=== PATIENT | male | born 1955 | race Caucasian/White ===

== ENCOUNTER 2017-11-23 16:22 | Inpatient (IN) | payer BC ==
[~2017-11-23] VITALS: Ht 193 cm; Wt 79.2 kg
[~2017-11-23 16:22] MED LIST: ALPR0.5T8 PO; BECL10PO MC; BUPR300T54 PO; DAPA5TAB PO; DIGO250T84 PO; DOCU100T PO; ENOX40DI8 SQ; FOLI0.8T PO; HYDR-2132 PO; METO100T14 PO; MULT-1285 PO; PARO40TA72 PO; TRAZ150T79 PO; WARF10TA6 PO
[2017-11-23] MEDS ORDERED: IPRATROPIUM/ALBUTEROL SULFATE 3 ML SOLUTION IH ONE ×3 (16:36→17:28)
[2017-11-23] MEDS ORDERED: METHYLPREDNISOLONE SOD SUCC 125MG/2ML VIAL ONE (16:40)
[2017-11-23 16:43] LABS: BASOPHILS % (AUTO) 0.5 % (0.0-5.0); HEMATOCRIT 35.8 % (42-54); LYMPHOCYTES % (AUTO) 7.7 % (21.0-51.0); MEAN CORPUSCULAR HEMOGLOBIN 20.7 pg (27.0-33.0); MEAN CORPUSCULAR VOLUME 68.8 fL (79-99); MONOCYTES % (AUTO) 10.7 % (3.0-13.0); NEUTROPHILS % (AUTO) 81.1 % (40.0-77.0); PLATELET COUNT (AUTO) 395 K/uL (130-400); WHITE BLOOD COUNT (AUTO) 22.5 K/uL (4.8-10.8)
[2017-11-23 16:52] LABS: CREATININE 1.5 mg/dL (0.5-1.5); POTASSIUM 4.6 mmol/L (3.5-5.1)
[2017-11-23 17:01] LABS: ABG BASE EXCESS -4.3 mmol/L (-2.0-3.0); ABG HCO3 23.3 mmol/L (21.0-28.0); ABG OXYGEN SATURATION 97.6 % (95.0-99.0); ABG PCO2 52 mmHg (35-48)
[2017-11-23 17:05] LABS: BILIRUBIN,TOTAL 0.4 mg/dL (0.2-1.0); CREATINE KINASE MB 2.4 ng/mL (0.5-3.6); TOTAL PROTEIN, SERUM 8.4 g/dL (6.0-8.3)
[2017-11-23] MEDS ORDERED: LEVOFLOXACIN 750 MG/D5W 150 ML 150 ML ONE (17:08)
[2017-11-23 17:20] LABS: B-TYPE NATRIURETIC PEPTIDE 230 pg/mL (0-100)
[2017-11-23] MEDS ORDERED: INSULIN HUMULIN R 100 UNIT/ML 3ML ONE (17:21)
[2017-11-23 18:00] LABS: PARTIAL THROMBOPLASTIN TIME > 120.0 SEC (26.3-35.5); PROTHROMBIN TIME 50.9 SEC (9.6-11.6)
[2017-11-23] MEDS ORDERED: LACTULOSE 20 GM/30 ML UDCUP PO PRN (20:30)
[2017-11-23] MEDS ORDERED: ONDANSETRON HCL 4 MG/2 ML VIAL IVP PRN (20:30)
[2017-11-23] MEDS ORDERED: CLONIDINE HCL 0.1 MG TABLET PO PRN (20:30)
[2017-11-23] MEDS ORDERED: ACETAMINOPHEN 325 MG TAB PO PRN ×2 (20:30)
[2017-11-23] MEDS ORDERED: IPRATROPIUM/ALBUTEROL SULFATE 3 ML SOLUTION IH PRN (20:30)
[2017-11-23] MEDS: IPRATROPIUM/ALBUTEROL SULFATE 3 ML SOLUTION IH SCH (21:17)
[2017-11-23] MEDS ORDERED: NICOTINE 14 MG/ 24 HR PATCH TD ONE (22:00)
[2017-11-24] VITALS (7 sets, daily range): BP systolic 124–157; BP diastolic 73–90
[2017-11-24] MEDS ORDERED: ACETAMINOPHEN 325 MG TAB PO PRN (00:30)
[2017-11-24] MEDS ORDERED: LIDOCAINE HCL-MPF 1% 2ML VIAL IVP PRN (00:30)
[2017-11-24] MEDS ORDERED: GLUCAGON 1MG KIT 1 MG ML IM PRN (00:30)
[2017-11-24] MEDS ORDERED: DEXTROSE 50%-WATER 50 ML DISP.SYRIN IV PRN (00:30)
[2017-11-24] MEDS ORDERED: HYDRALAZINE HCL 20 MG/ML VIAL IV PRN (00:30)
[2017-11-24] MEDS ORDERED: MORPHINE SULFATE 2 MG/ML 1ML SYG IVP PRN (00:30)
[2017-11-24] MEDS ORDERED: POTASSIUM CHLORIDE 20MEQ/100ML 100 ML IV PRN (00:30)
[2017-11-24] MEDS ORDERED: POTASSIUM CHLORIDE 20 MEQ ERTAB PO PRN (00:30)
[2017-11-24] MEDS ORDERED: POTASSIUM CHLORIDE 10% ELIXIR 20 MEQ/15 ML UDCUP PO PRN (00:30)
[2017-11-24] MEDS: METHYLPREDNISOLONE SOD SUCC 40MG/ML 1ML IVP SCH ×4 (00:44→23:37)
[2017-11-24] MEDS ORDERED: MORPHINE SULFATE 4 MG/1ML SYG ONE ×5 (00:48→23:30)
[2017-11-24] MEDS: ALPRAZOLAM 0.25 MG TABLET PO PRN ×3 (02:06→14:23)
[2017-11-24] MEDS: IPRATROPIUM/ALBUTEROL SULFATE 3 ML SOLUTION IH SCH ×4 (03:06→13:33)
[2017-11-24 04:09] LABS: CREATININE 1.3 mg/dL (0.5-1.5); POTASSIUM 4.5 mmol/L (3.5-5.1)
[2017-11-24 04:10] LABS: HEMATOCRIT 32.4 % (42-54); MEAN CORPUSCULAR HGB CONC 30.7 g/dL (32.0-36.0); MEAN CORPUSCULAR VOLUME 68.4 fL (79-99); PLATELET COUNT (AUTO) 375 K/uL (130-400); RED BLOOD CELL COUNT(AUTO) 4.73 MIL/uL (4.50-6.20); RED CELL DISTRIBUTION WIDTH 18.5 % (11.0-15.5); WHITE BLOOD COUNT (AUTO) 18.6 K/uL (4.8-10.8)
[2017-11-24 04:30] LABS: PARTIAL THROMBOPLASTIN TIME > 120.0 SEC (26.3-35.5); PROTHROMBIN TIME 47.9 SEC (9.6-11.6)
[2017-11-24 04:57] LABS: BAND NEUTROPHILS % (MANUAL) 10 % (0-2); LYMPHOCYTES % (MANUAL) 5 % (22-44); MAN.DIFF COMMENT-IMPRESSION MANUAL DIFFERENTIAL; MONOCYTES % (MANUAL) 2 % (2-9); SEGMENTED NEUTROPHILS % 83 % (40-70)
[2017-11-24] MEDS: INSULIN HUMULIN R 100 UNIT/ML 3ML SQ SCH ×4 (06:10→21:27)
[2017-11-24] MEDS ORDERED: ENOXAPARIN SODIUM 40 MG/0.4 ML SYRINGE SQ SCH (09:00)
[2017-11-24] MEDS: FAMOTIDINE 20MG TAB 20 MG TAB PO SCH ×2 (09:06→21:30)
[2017-11-24] MEDS ORDERED: DULO60CA63 PO (13:29)
[2017-11-24] MEDS ORDERED: LOSA50TA37 PO (13:29)
[2017-11-24] MEDS ORDERED: METF850T2 PO (13:29)
[2017-11-24] MEDS ORDERED: TAMS0.4C32 PO (13:29)
[2017-11-24] MEDS ORDERED: GLYB5TAB8 PO (13:29)
[2017-11-24] MEDS ORDERED: DILT240C94 PO (13:29)
[2017-11-24] MEDS ORDERED: PENI500T2 PO (13:29)
[2017-11-24] MEDS ORDERED: DICL75TA5 PO (13:29)
[2017-11-24] MEDS ORDERED: MEROPENEM 1GM IVPB PREMIXED 1 GM IV SCH (14:15)
[2017-11-24] MEDS ORDERED: CALC-1038 PO (16:06)
[2017-11-24] MEDS: MEROPENEM 1 GM VIAL IVP SCH ×2 (16:34→23:37)
[2017-11-24] MEDS: DOXYCYCLINE 100MG+NS 250ML 250 ML IV SCH (16:34)
[2017-11-24] MEDS ORDERED: LEVOFLOXACIN 500 MG/D5W 100 ML 100 ML IV SCH (17:00)
[2017-11-24] MEDS ORDERED: NICO-649 TD (18:13)
[2017-11-24] MEDS ORDERED: HYDROCODONE/ACETAMINOPHEN 5/325 MG TAB PO PRN (19:00)
[2017-11-24] MEDS: NICOTINE 21 MG/ 24 HR PATCH TD SCH (19:01)
[2017-11-24] MEDS: IPRATROPIUM 0.5 MG/2.5 ML INH IH SCH ×2 (19:14→22:08)
[2017-11-24] MEDS: Diclofenac Sodium 75 MG PO SCH (21:00)
[2017-11-24] MEDS ORDERED: PENICILLIN V POTASSIUM 500 MG TABLET PO SCH (21:00)
[2017-11-24] MEDS: METFORMIN HCL 850 MG TABLET PO SCH (21:29)
[2017-11-24] MEDS: LOSARTAN 50 MG TABLET PO SCH (21:29)
[2017-11-24] MEDS: METOPROLOL TARTRATE 50 MG TAB PO SCH (21:29)
[2017-11-24] MEDS: OSELTAMIVIR PHOSPHATE 75 MG CAP PO SCH (21:29)
[2017-11-24] MEDS: TRAZODONE HCL 50 MG TAB PO SCH (21:29)
[2017-11-24] MEDS: TAMSULOSIN HCL 0.4 MG CAP.ER.24H PO SCH (21:29)
[2017-11-24] MEDS: ALPRAZOLAM 0.5 MG TABLET PO PRN (21:40)
[2017-11-24] MEDS: BUDESONIDE 0.5 MG/2 ML INH IH SCH (22:08)
[2017-11-25] MEDS: IPRATROPIUM 0.5 MG/2.5 ML INH IH SCH ×6 (01:37→22:13)
[2017-11-25 03:49] LABS: HEMATOCRIT 32.3 % (42-54); MEAN CORPUSCULAR HEMOGLOBIN 20.8 pg (27.0-33.0); MEAN CORPUSCULAR HGB CONC 30.3 g/dL (32.0-36.0); MEAN CORPUSCULAR VOLUME 68.5 fL (79-99); NUCLEATED RED BLOOD CELLS 0.2 % (0.0-0.19); PLATELET COUNT (AUTO) 387 K/uL (130-400); RED BLOOD CELL COUNT(AUTO) 4.72 MIL/uL (4.50-6.20); RED CELL DISTRIBUTION WIDTH 18.6 % (11.0-15.5); WHITE BLOOD COUNT (AUTO) 24.5 K/uL (4.8-10.8)
[2017-11-25 03:55] LABS: INR 2.26 (0.85-1.15); PROTHROMBIN TIME 23.4 SEC (9.6-11.6)
[2017-11-25 04:02] LABS: ABG BASE EXCESS 1.4 mmol/L (-2.0-3.0); ABG HCO3 27.5 mmol/L (21.0-28.0); ABG OXYGEN SATURATION 95.4 % (95.0-99.0); ABG PCO2 49 mmHg (35-48)
[2017-11-25 04:07] VITALS: BP 114/69
[2017-11-25 04:14] LABS: ALBUMIN 2.5 g/dL (3.5-5.0); BILIRUBIN,TOTAL 0.2 mg/dL (0.2-1.0); MAGNESIUM 2.2 mg/dL (1.80-2.40); PHOSPHORUS 3.1 mg/dL (2.5-4.9); POTASSIUM 4.7 mmol/L (3.5-5.1)
[2017-11-25] MEDS ORDERED: MORPHINE SULFATE 4 MG/1ML SYG ONE ×2 (04:56→12:25)
[2017-11-25] MEDS: DOXYCYCLINE 100MG+NS 250ML 250 ML IV SCH ×2 (05:00→14:55)
[2017-11-25] MEDS: INSULIN HUMULIN R 100 UNIT/ML 3ML SQ SCH ×4 (06:07→21:23)
[2017-11-25] MEDS: BUDESONIDE 0.5 MG/2 ML INH IH SCH ×2 (06:16→19:14)
[2017-11-25 08:00] VITALS: BP 134/84
[2017-11-25] MEDS: MEROPENEM 1 GM VIAL IVP SCH ×3 (08:01→23:07)
[2017-11-25] MEDS: ALPRAZOLAM 0.25 MG TABLET PO PRN ×2 (08:01→15:08)
[2017-11-25] MEDS: OSELTAMIVIR PHOSPHATE 75 MG CAP PO SCH ×2 (08:55→21:14)
[2017-11-25] MEDS: METOPROLOL TARTRATE 50 MG TAB PO SCH ×2 (08:55→21:14)
[2017-11-25] MEDS: BUPROPION HCL 150 MG TABLET.SA PO SCH (08:55)
[2017-11-25] MEDS: METFORMIN HCL 850 MG TABLET PO SCH ×2 (08:55→21:15)
[2017-11-25] MEDS: DULOXETINE HCL 30 MG CAP PO SCH (08:56)
[2017-11-25] MEDS: FOLIC ACID 1 MG TABLET PO SCH (08:56)
[2017-11-25] MEDS: FAMOTIDINE 20MG TAB 20 MG TAB PO SCH ×2 (08:56→21:15)
[2017-11-25] MEDS: CALCIUM CARBONATE 500 MG TABLET PO SCH (08:56)
[2017-11-25] MEDS: METHYLPREDNISOLONE SOD SUCC 40MG/ML 1ML IVP SCH ×2 (08:58→16:39)
[2017-11-25] MEDS: Dapagliflozin Propanediol (Farxiga) 5 MG PO SCH (09:00)
[2017-11-25] MEDS ORDERED: NON-FORMULARY MEDICATION 1 EACH (Nicotine (Nicotine Patch) 1 EACH) TD SCH (09:00)
[2017-11-25] MEDS ORDERED: NICOTINE 14 MG/ 24 HR PATCH TD SCH (09:00)
[2017-11-25] MEDS: Diclofenac Sodium 75 MG PO SCH ×2 (09:00→21:00)
[2017-11-25] MEDS: GLYBURIDE 5 MG TABLET PO SCH (09:02)
[2017-11-25] MEDS: DILTIAZEM HCL 120 MG CAP.SR.24H PO SCH (09:02)
[2017-11-25] MEDS: DIGOXIN 250 MCG TABLET PO SCH (09:03)
[2017-11-25] MEDS: HYDROCODONE/ACETAMINOPHEN 5/325 MG TAB PO PRN (10:27)
[2017-11-25 11:00] VITALS: BP 141/83
[2017-11-25 16:00] VITALS: BP 131/76
[2017-11-25] MEDS: NICOTINE 21 MG/ 24 HR PATCH TD SCH (16:55)
[2017-11-25 19:40] VITALS: BP 122/78
[2017-11-25] MEDS: TRAZODONE HCL 50 MG TAB PO SCH (21:14)
[2017-11-25] MEDS: LOSARTAN 50 MG TABLET PO SCH (21:14)
[2017-11-25] MEDS: TAMSULOSIN HCL 0.4 MG CAP.ER.24H PO SCH (21:14)
[2017-11-26] MEDS: METHYLPREDNISOLONE SOD SUCC 40MG/ML 1ML IVP SCH ×3 (00:38→21:12)
[2017-11-26] MEDS: IPRATROPIUM 0.5 MG/2.5 ML INH IH SCH ×6 (01:42→22:02)
[2017-11-26] MEDS: ALPRAZOLAM 0.5 MG TABLET PO PRN (02:19)
[2017-11-26] MEDS: DOXYCYCLINE 100MG+NS 250ML 250 ML IV SCH ×2 (03:02→17:20)
[2017-11-26 03:55] VITALS: BP 106/68
[2017-11-26] MEDS: BUDESONIDE 0.5 MG/2 ML INH IH SCH ×2 (06:19→17:23)
[2017-11-26] MEDS: INSULIN HUMULIN R 100 UNIT/ML 3ML SQ SCH ×4 (06:22→21:27)
[2017-11-26] MEDS: MEROPENEM 1 GM VIAL IVP SCH ×3 (06:22→23:09)
[2017-11-26] MEDS: MORPHINE SULFATE 4 MG/1ML SYG IV PRN ×3 (08:45→22:16)
[2017-11-26] MEDS: NICOTINE 21 MG/ 24 HR PATCH TD SCH (08:45)
[2017-11-26] MEDS: DIGOXIN 250 MCG TABLET PO SCH (08:46)
[2017-11-26] MEDS: DILTIAZEM HCL 120 MG CAP.SR.24H PO SCH (08:47)
[2017-11-26] MEDS: DULOXETINE HCL 30 MG CAP PO SCH (08:48)
[2017-11-26] MEDS: CALCIUM CARBONATE 500 MG TABLET PO SCH (08:49)
[2017-11-26] MEDS: METFORMIN HCL 850 MG TABLET PO SCH ×2 (08:49→21:13)
[2017-11-26] MEDS: OSELTAMIVIR PHOSPHATE 75 MG CAP PO SCH ×2 (08:49→21:14)
[2017-11-26] MEDS: FAMOTIDINE 20MG TAB 20 MG TAB PO SCH ×2 (08:50→21:13)
[2017-11-26] MEDS: GLYBURIDE 5 MG TABLET PO SCH (08:50)
[2017-11-26] MEDS: FOLIC ACID 1 MG TABLET PO SCH (08:50)
[2017-11-26] MEDS: BUPROPION HCL 150 MG TABLET.SA PO SCH (08:50)
[2017-11-26] MEDS: METOPROLOL TARTRATE 50 MG TAB PO SCH ×2 (08:51→21:13)
[2017-11-26] MEDS: Dapagliflozin Propanediol (Farxiga) 5 MG PO SCH (09:00)
[2017-11-26] MEDS: Diclofenac Sodium 75 MG PO SCH ×2 (09:00→21:00)
[2017-11-26] MEDS: ALPRAZOLAM 0.25 MG TABLET PO PRN (11:15)
[2017-11-26 16:00] VITALS: BP 115/68
[2017-11-26] MEDS ORDERED: WARFARIN SODIUM 10 MG TABLET PO SCH (16:00)
[2017-11-26 20:00] VITALS: BP 147/75
[2017-11-26] MEDS: TAMSULOSIN HCL 0.4 MG CAP.ER.24H PO SCH (21:13)
[2017-11-26] MEDS: TRAZODONE HCL 50 MG TAB PO SCH (21:13)
[2017-11-26] MEDS: LOSARTAN 50 MG TABLET PO SCH (21:13)
[2017-11-27] VITALS: BP 146/70
[2017-11-27] MEDS: IPRATROPIUM 0.5 MG/2.5 ML INH IH SCH ×5 (02:17→18:14)
[2017-11-27] MEDS: ALPRAZOLAM 0.25 MG TABLET PO PRN ×2 (03:52→20:53)
[2017-11-27] MEDS: DOXYCYCLINE 100MG+NS 250ML 250 ML IV SCH ×2 (03:53→15:19)
[2017-11-27 04:00] VITALS: BP 151/86
[2017-11-27] MEDS: MORPHINE SULFATE 4 MG/1ML SYG IV PRN ×2 (04:03→10:47)
[2017-11-27] MEDS: BUDESONIDE 0.5 MG/2 ML INH IH SCH ×2 (06:06→18:14)
[2017-11-27 06:45] LABS: MEAN CORPUSCULAR HEMOGLOBIN 21.1 pg (27.0-33.0); MEAN CORPUSCULAR HGB CONC 30.6 g/dL (32.0-36.0); NUCLEATED RED BLOOD CELLS 0.1 % (0.0-0.19); PLATELET COUNT (AUTO) 384 K/uL (130-400); RED BLOOD CELL COUNT(AUTO) 5.07 MIL/uL (4.50-6.20); RED CELL DISTRIBUTION WIDTH 18.5 % (11.0-15.5); WHITE BLOOD COUNT (AUTO) 19.4 K/uL (4.8-10.8)
[2017-11-27 06:57] LABS: CREATININE 0.9 mg/dL (0.5-1.5); POTASSIUM 5.7 mmol/L (3.5-5.1)
[2017-11-27 07:03] LABS: INR 1.45 (0.85-1.15); PROTHROMBIN TIME 15.1 SEC (9.6-11.6)
[2017-11-27] MEDS: INSULIN HUMULIN R 100 UNIT/ML 3ML SQ SCH ×4 (07:03→20:55)
[2017-11-27] MEDS: MEROPENEM 1 GM VIAL IVP SCH ×3 (07:07→22:46)
[2017-11-27 07:35] LABS: B-TYPE NATRIURETIC PEPTIDE 293 pg/mL (0-100)
[2017-11-27 08:00] VITALS: BP 138/77
[2017-11-27] MEDS: Dapagliflozin Propanediol (Farxiga) 5 MG PO SCH (09:00)
[2017-11-27] MEDS: BUPROPION HCL 150 MG TABLET.SA PO SCH (09:00)
[2017-11-27] MEDS: Diclofenac Sodium 75 MG PO SCH ×2 (09:00→21:00)
[2017-11-27] MEDS: NICOTINE 21 MG/ 24 HR PATCH TD SCH (09:25)
[2017-11-27] MEDS: METOPROLOL TARTRATE 50 MG TAB PO SCH ×2 (09:26→20:52)
[2017-11-27] MEDS: DIGOXIN 250 MCG TABLET PO SCH (09:26)
[2017-11-27] MEDS: FAMOTIDINE 20MG TAB 20 MG TAB PO SCH ×2 (09:26→20:52)
[2017-11-27] MEDS: METHYLPREDNISOLONE SOD SUCC 40MG/ML 1ML IVP SCH ×2 (09:27→20:52)
[2017-11-27] MEDS: DULOXETINE HCL 30 MG CAP PO SCH (09:27)
[2017-11-27] MEDS: OSELTAMIVIR PHOSPHATE 75 MG CAP PO SCH ×2 (09:27→20:52)
[2017-11-27] MEDS: FOLIC ACID 1 MG TABLET PO SCH (09:28)
[2017-11-27] MEDS: DILTIAZEM HCL 120 MG CAP.SR.24H PO SCH (09:28)
[2017-11-27] MEDS: CALCIUM CARBONATE 500 MG TABLET PO SCH (09:28)
[2017-11-27] MEDS: GLYBURIDE 5 MG TABLET PO SCH (09:28)
[2017-11-27] MEDS: METFORMIN HCL 850 MG TABLET PO SCH ×2 (09:29→20:52)
[2017-11-27] MEDS ORDERED: MORPHINE SULFATE 2 MG/ML 1ML SYG IVP PRN (09:30)
[2017-11-27 11:57] VITALS: BP 134/70
[2017-11-27] MEDS: MORPHINE SULFATE 2 MG/ML 1ML SYG IVP PRN ×2 (15:18→20:54)
[2017-11-27 16:00] VITALS: BP 130/82
[2017-11-27] MEDS ORDERED: WARF7.5T6 PO (16:01)
[2017-11-27] MEDS: WARFARIN SODIUM 7.5 MG TAB PO SCH (17:15)
[2017-11-27 19:00] VITALS: BP 110/59
[2017-11-27] MEDS: TAMSULOSIN HCL 0.4 MG CAP.ER.24H PO SCH (20:52)
[2017-11-27] MEDS: TRAZODONE HCL 50 MG TAB PO SCH (20:52)
[2017-11-27] MEDS: LOSARTAN 50 MG TABLET PO SCH (20:52)
[2017-11-28] VITALS: BP 124/60
[2017-11-28] MEDS: IPRATROPIUM/ALBUTEROL SULFATE 3 ML SOLUTION IH SCH ×5 (00:11→23:24)
[2017-11-28 04:00] VITALS: BP 126/74
[2017-11-28] MEDS: DOXYCYCLINE 100MG+NS 250ML 250 ML IV SCH ×2 (04:18→16:09)
[2017-11-28] MEDS: INSULIN HUMULIN R 100 UNIT/ML 3ML SQ SCH ×4 (06:29→21:17)
[2017-11-28] MEDS: MEROPENEM 1 GM VIAL IVP SCH ×3 (06:36→23:16)
[2017-11-28 06:39] LABS: MEAN CORPUSCULAR HEMOGLOBIN 20.7 pg (27.0-33.0); MEAN CORPUSCULAR HGB CONC 30.1 g/dL (32.0-36.0); MEAN CORPUSCULAR VOLUME 68.9 fL (79-99); PLATELET COUNT (AUTO) 354 K/uL (130-400); RED BLOOD CELL COUNT(AUTO) 5.22 MIL/uL (4.50-6.20); WHITE BLOOD COUNT (AUTO) 21.2 K/uL (4.8-10.8)
[2017-11-28 06:42] LABS: POTASSIUM 5.1 mmol/L (3.5-5.1)
[2017-11-28] MEDS: BUDESONIDE 0.5 MG/2 ML INH IH SCH ×2 (06:45→19:19)
[2017-11-28 08:00] VITALS: BP 137/79
[2017-11-28] MEDS: Diclofenac Sodium 75 MG PO SCH ×2 (09:00→21:00)
[2017-11-28] MEDS: Dapagliflozin Propanediol (Farxiga) 5 MG PO SCH (09:00)
[2017-11-28] MEDS: BUPROPION HCL 150 MG TABLET.SA PO SCH (09:54)
[2017-11-28] MEDS: DILTIAZEM HCL 120 MG CAP.SR.24H PO SCH (09:54)
[2017-11-28] MEDS: METOPROLOL TARTRATE 50 MG TAB PO SCH ×2 (09:55→21:09)
[2017-11-28] MEDS: CALCIUM CARBONATE 500 MG TABLET PO SCH (09:55)
[2017-11-28] MEDS: PREDNISONE 20 MG TABLET PO SCH (09:55)
[2017-11-28] MEDS: DIGOXIN 250 MCG TABLET PO SCH (09:56)
[2017-11-28] MEDS: FOLIC ACID 1 MG TABLET PO SCH (09:56)
[2017-11-28] MEDS: OSELTAMIVIR PHOSPHATE 75 MG CAP PO SCH ×2 (09:56→21:10)
[2017-11-28] MEDS: GLYBURIDE 5 MG TABLET PO SCH (09:56)
[2017-11-28] MEDS: METFORMIN HCL 850 MG TABLET PO SCH ×2 (09:57→21:10)
[2017-11-28] MEDS: FAMOTIDINE 20MG TAB 20 MG TAB PO SCH ×2 (09:57→21:10)
[2017-11-28] MEDS: DULOXETINE HCL 30 MG CAP PO SCH (09:57)
[2017-11-28] MEDS: NICOTINE 21 MG/ 24 HR PATCH TD SCH (09:59)
[2017-11-28 11:22] VITALS: BP 137/86
[2017-11-28] MEDS: ALPRAZOLAM 0.25 MG TABLET PO PRN ×2 (11:48→17:57)
[2017-11-28 15:58] VITALS: BP 122/69
[2017-11-28] MEDS: WARFARIN SODIUM 7.5 MG TAB PO SCH (16:09)
[2017-11-28 19:00] VITALS: BP 144/77
[2017-11-28] MEDS: TAMSULOSIN HCL 0.4 MG CAP.ER.24H PO SCH (21:10)
[2017-11-28] MEDS: LOSARTAN 50 MG TABLET PO SCH (21:10)
[2017-11-28] MEDS: TRAZODONE HCL 50 MG TAB PO SCH (21:10)
[2017-11-29] VITALS: BP 131/80
[2017-11-29] MEDS: ALPRAZOLAM 0.25 MG TABLET PO PRN (02:51)
[2017-11-29] MEDS: DOXYCYCLINE 100MG+NS 250ML 250 ML IV SCH (03:04)
[2017-11-29 04:00] VITALS: BP 113/57
[2017-11-29] MEDS: MEROPENEM 1 GM VIAL IVP SCH (06:07)
[2017-11-29] MEDS: HYDROCODONE/ACETAMINOPHEN 5/325 MG TAB PO PRN (06:08)
[2017-11-29 06:17] LABS: HEMATOCRIT 34.9 % (42-54); MEAN CORPUSCULAR HEMOGLOBIN 21.6 pg (27.0-33.0); MEAN CORPUSCULAR HGB CONC 31.7 g/dL (32.0-36.0); NUCLEATED RED BLOOD CELLS 0.1 % (0.0-0.19); PLATELET COUNT (AUTO) 352 K/uL (130-400); RED BLOOD CELL COUNT(AUTO) 5.13 MIL/uL (4.50-6.20); WHITE BLOOD COUNT (AUTO) 20.2 K/uL (4.8-10.8)
[2017-11-29] MEDS: INSULIN HUMULIN R 100 UNIT/ML 3ML SQ SCH ×2 (06:35→11:15)
[2017-11-29] MEDS: IPRATROPIUM/ALBUTEROL SULFATE 3 ML SOLUTION IH SCH ×2 (06:48→11:24)
[2017-11-29 08:00] VITALS: BP 119/76
[2017-11-29] MEDS: Dapagliflozin Propanediol (Farxiga) 5 MG PO SCH (09:00)
[2017-11-29] MEDS: Diclofenac Sodium 75 MG PO SCH (09:00)
[2017-11-29] MEDS ORDERED: PRED20TA3 PO (09:37)
[2017-11-29] MEDS ORDERED: DOXY100T2 PO (09:37)
[2017-11-29] MEDS: METOPROLOL TARTRATE 50 MG TAB PO SCH (09:54)
[2017-11-29] MEDS: CALCIUM CARBONATE 500 MG TABLET PO SCH (09:54)
[2017-11-29] MEDS: DULOXETINE HCL 30 MG CAP PO SCH (09:54)
[2017-11-29] MEDS: GLYBURIDE 5 MG TABLET PO SCH (09:54)
[2017-11-29] MEDS: PREDNISONE 20 MG TABLET PO SCH (09:54)
[2017-11-29] MEDS: FAMOTIDINE 20MG TAB 20 MG TAB PO SCH (09:54)
[2017-11-29] MEDS: OSELTAMIVIR PHOSPHATE 75 MG CAP PO SCH (09:54)
[2017-11-29] MEDS: DIGOXIN 250 MCG TABLET PO SCH (09:54)
[2017-11-29] MEDS: FOLIC ACID 1 MG TABLET PO SCH (09:54)
[2017-11-29] MEDS: METFORMIN HCL 850 MG TABLET PO SCH (09:55)
[2017-11-29] MEDS: DILTIAZEM HCL 120 MG CAP.SR.24H PO SCH (09:55)
[2017-11-29] MEDS: BUPROPION HCL 150 MG TABLET.SA PO SCH (09:55)
[2017-11-29] MEDS: NICOTINE 21 MG/ 24 HR PATCH TD SCH (09:56)
[2017-11-29] MEDS: BUDESONIDE 0.5 MG/2 ML INH IH SCH (10:49)
[2017-11-29 11:00] VITALS: BP 108/61
== END 2017-11-29 11:55 | disposition home or self-care (01) | DRG 193 ==
LOC: EDH 16:22 → EDHIP 18:00 → 3AH 11-24 00:33
PROVIDERS: ADMIT Family Medicine; ATTEND Family Medicine
DX: J18.9 Pneumonia, unspecified organism (principal); J96.21 Acute and chronic respiratory failure with hypoxia; J96.22 Acute and chronic respiratory failure with hypercapnia; J44.1 Chronic obstructive pulmonary disease with (acute) exacerbation; J44.0 Chronic obstructive pulmonary disease with (acute) lower respiratory infection; I48.2 Chronic atrial fibrillation; I48.91 Unspecified atrial fibrillation; E11.9 Type 2 diabetes mellitus without complications; I10 Essential (primary) hypertension; F17.210 Nicotine dependence, cigarettes, uncomplicated; M19.90 Unspecified osteoarthritis, unspecified site; F41.9 Anxiety disorder, unspecified; G89.4 Chronic pain syndrome; R79.1 Abnormal coagulation profile; Z79.01 Long term (current) use of anticoagulants; Z88.8 Allergy status to other drugs, medicaments and biological substances
CPT/HCPCS: 36415; 36600; 71045; 71250; 80048; 80053; 82550; 82553; 82803; 82947; 82948; 83605; 83735; 83880; 84100; 84484; 85025; 85027; 85610; 85730; 87040; 87804; 93005; 94640; 94664; 94760; 97039; 99291; A4218; J1650; J1815; J1956; J2185; J2270; J2920; J2930; J3490